=== PATIENT | female | born 1990 | race Caucasian/White ===

== ENCOUNTER 2025-02-28 16:59 | Emergency (ER) | payer BC ==
[2025-02-28] MEDS: cefTRIAXone 2 GM, Lidocaine 1% 4.2 ML IM ONE (18:15)
== END 2025-02-28 18:20 | disposition home or self-care (01) ==
LOC: JD.ED 16:59
DX: J01.90 Acute sinusitis, unspecified (principal); B96.89 Other specified bacterial agents as the cause of diseases classified elsewhere
CPT/HCPCS: 96372; 99283; J0696; J2003